=== PATIENT | female | born 1990 | race Caucasian/White ===

== ENCOUNTER 2019-02-18 12:29 | Outpatient (CLI) | payer MEDICAID ==
[~2019-02-18] VITALS: Ht 157.5 cm; Wt 78.2 kg
[2019-02-18 12:33] VITALS: Ht 157.5 cm; Wt 78.2 kg
[2019-02-18 12:34] VITALS: BP 112/78; PULSE 96; RESP 17
--- NOTE | 2019-02-18 14:27 | TRIAGE ---
OB Triage Datetime Report Generated by CPN: 02/18/2019 14:27 Datetime: 02/18/2019 12:54 Labor Evaluation Pattern: Normal: <= 5 Contractions in 10 Minutes Resting Tone [place]: Relaxed Contraction Comments: no uc Heart Rate FHR Baseline Rate: 135 Variability: Moderate 6-25 bpm Accelerations: 15X15 Decelerations: None Category: Category I Comments: reactive nst Datetime: 02/18/2019 12:38 Assessment Type: Triage Maternal Assessment Level of Consciousness: Fully Conscious DTR's/Clonus: DTRs 2+; No Clonus Headache: Denies Blurred Vision: No Respiratory Effort: Unlabored; Regular Rhythm; Equal Expansion Breath Sounds, Left: Clear and Equal Breath Sounds, Right: Clear and Equal Nausea/Vomiting: Denies RUQ Epigastric Pain: Denies Lower Extremities Edema: None Degree: None Upper Extremities Edema: None Degree: None Facial Edema: None Fall Risk Assessment History of Falling: (0) No Secondary Diagnosis: (0) No Ambulatory Aid: (0) Bedrest/Nurse Assist IV Therapy: (0) No Gait: (0) Normal/Bedrest/Immobile Mental Status: (0) Oriented to Own Ability Fall Score: 0 Fall Risk Score Definition: No Risk: No action required Datetime: 02/18/2019 12:36 Time of Arrival: 02/18/2019 12:30 EGA: 36.5 Arrived By: Ambulatory Arrived From: Home Chief Complaint: pt. came to ob triage with referral paper for nst and jorge due to a1dm Movement: Present Contractions: Denies/Absent Rupture of Membranes: Denies Vaginal Bleeding: None Vaginal Discharge: Denies Recent Sexual Intercouse: Denies Abdominal Trauma: Not Applicable Patient Complaints: None Additional Patient Complaints: fbs 78 Time Provider Notified: 02/11/2019 13:17 Provider Notified: Initial Plan: nst, jorge
--- NOTE | 2019-02-18 19:36 | PN ---
Triage Information Date/Time Reason for visit: Antepartum testing for gestational diabetes Weeks of Gestation 36 weeks and 5 days /Para Diabetes: gestational Diabetes management: diet controlled Hypertention: none Objective Vital Signs Date Temp Pulse Resp B/P (MAP) Pulse Ox O2 O2 Flow FiO2 Time Delivery Rate 02/18/19 98.1 96 17 112/78 12:34 (89) Heart Rate: 130's Contractions: None Disposition: Discharge Assessment/Plan 28 years old with single intrauterine at 36 weeks and 5 days referred for NST and biophysical profile for gestational diabetes A1. She states good movement. She denies nausea, vomiting, shortness of breath, chest pain, headache, visual changes, vaginal bleeding or LOF. -FHR: No sign of metabolic acidosis- Category I -Contractions: None -Ultrasound performed: Normal ANDREE, BPP 8 out of 8 -Symptoms and sign of labor, preeclampsia, kick count discussed with patient, she voiced understanding. All of her questions answered. -Patient was discharged home in stable condition with the appropriate discharge instructions provided. I would like patient to have close follow-up with her primary physician or outpatient clinic in 1-2 days or return to triage for worsening symptoms or any other urgent concerns. KATHARINA DE LA GARZA Feb 18, 2019 19:36
== END 2019-02-18 14:15 | disposition home or self-care (01) ==
LOC: OBT 12:29 → L-D 12:29 → OBT 14:15
PROVIDERS: ATTEND Obstetrics & Gynecology
DX: O24.419 Gestational diabetes mellitus in pregnancy, unspecified control (principal); Z3A.36 36 weeks gestation of pregnancy
CPT/HCPCS: 76815; Z7500; G0463

== ENCOUNTER 2019-03-06 12:19 | Outpatient (CLI) | payer MEDICAID ==
[~2019-03-06] VITALS: Ht 157.5 cm; Wt 81.7 kg
[2019-03-06 12:31] VITALS: BP 121/85; PULSE 93; RESP 18; Ht 157.5 cm; Wt 81.7 kg
[2019-03-06] MEDS ORDERED: PREN-99 PO (12:35)
[2019-03-06] MEDS ORDERED: FER325 PO (12:36)
--- NOTE | 2019-03-06 14:03 | TRIAGE ---
OB Triage Datetime Report Generated by CPN: 03/06/2019 14:03 Datetime: 03/06/2019 12:40 Stage of : OB Triage Assessment Type: Triage Maternal Assessment Level of Consciousness: Fully Conscious DTR's/Clonus: DTRs 2+; No Clonus Headache: Denies Blurred Vision: No Respiratory Effort: Unlabored; Regular Rhythm; Equal Expansion Breath Sounds, Left: Clear and Equal Breath Sounds, Right: Clear and Equal Nausea/Vomiting: Denies RUQ Epigastric Pain: Denies Lower Extremities Edema: Bilateral Lower Extremities Degree: 1+ Upper Extremities Edema: None Degree: None Facial Edema: None Temperature Route: Oral Fall Risk Assessment History of Falling: (0) No Secondary Diagnosis: (0) No Ambulatory Aid: (0) Bedrest/Nurse Assist IV Therapy: (0) No Gait: (0) Normal/Bedrest/Immobile Mental Status: (0) Oriented to Own Ability Fall Score: 0 Fall Risk Score Definition: No Risk: No action required Labor Evaluation Frequency: x1 Monitor Mode: External Duration (sec)2399: 50 Quality: Mild Resting Tone [place]: Relaxed Heart Rate FHR Baseline Rate: 130 Monitor Mode: External US FHR Baseline Changes: No Baseline Change Variability: Moderate 6-25 bpm Accelerations: 15X15 Decelerations: None Category: Category I Pain Assessment Pain Scale: 0 Pain Presence: None/Denies Pain Type: N/A Datetime: 03/06/2019 12:22 Vaginal Exam Dilatation (cms): 1.5 Station: -3 Exam By: Dr Bibiana Datetime: 02/18/2019 14:00 Time of Arrival: 03/06/2019 12:11 EGA: 39.0 Arrived By: Ambulatory Arrived From: Home Chief Complaint: vaginal discharge Movement: Present Contractions: Denies/Absent Rupture of Membranes: Denies Vaginal Bleeding: None Vaginal Discharge: Present Recent Sexual Intercouse: Denies Abdominal Trauma: Not Applicable Patient Complaints: None Time Provider Notified: 03/06/2019 12:22 Provider Notified: Dr Mccarty Initial Plan: NST, EFM Datetime: 02/18/2019 12:38 Fall Score: 0 Fall Risk Score Definition: No Risk: No action required Datetime: 02/18/2019 12:36 EGA: 36.5
--- NOTE | 2019-03-06 17:36 | PN ---
Triage Information Date/Time 03/06/19/ 1726 Reason for visit: mucosy discharge Weeks of Gestation 39w /Para Diabetes: none, gestational Diabetes management: diet controlled Objective Vital Signs Date Temp Pulse Resp B/P (MAP) Pulse Ox O2 O2 Flow FiO2 Time Delivery Rate 03/06/19 98.7 93 18 121/85 12:31 (97) Heart Rate: 140's Contractions: None Exam 1-2/ long/-3 post FBS 77 Results/Medications Imaging Results BPP 06/11 ANDREE 14.4 Disposition: Discharge Assessment/Plan A IUP 39w NIL Pdischarge home with routine instruction JAYDON BENNETT MD March 06, 2019 17:36
== END 2019-03-06 13:40 | disposition home or self-care (01) ==
LOC: L-D 12:19 → OBT 12:19
PROVIDERS: ATTEND Obstetrics & Gynecology
DX: O24.410 Gestational diabetes mellitus in pregnancy, diet controlled (principal); Z3A.39 39 weeks gestation of pregnancy
CPT/HCPCS: 76818; Z7500; G0463

== ENCOUNTER 2019-03-08 16:14 | Inpatient (IN) | payer MEDICAID ==
[~2019-03-08] VITALS: Ht 160 cm; Wt 81.5 kg
[~2019-03-08 16:14] MED LIST: FER325 PO; PREN-99 PO
[2019-03-08 16:21] VITALS: Ht 160 cm; Wt 81.5 kg
[2019-03-08 16:22] VITALS: BP 126/88; PULSE 93; RESP 18
[2019-03-08] MEDS: LACTATED RINGER'S 1,000 ML IV SCH ×2 (17:49→21:00)
[2019-03-08] MEDS ORDERED: CARBOPROST 250 MCG INJ IM PRN (18:00)
[2019-03-08] MEDS ORDERED: OXYTOCIN 30 UNITS/LR 500 ML IV SCH ×3 (18:00)
[2019-03-08] MEDS ORDERED: OXYTOCIN 30 UNITS/LR 500 ML IV PRN (18:00)
[2019-03-08] MEDS ORDERED: BUTORPHANOL 2 MG INJ IV PRN (18:00)
[2019-03-08] MEDS ORDERED: METHYLERGONOVINE 0.2 MG INJ IM PRN (18:00)
[2019-03-08] MEDS ORDERED: LIDOCAINE 1% (MPF) 30 ML INJ INJ PRN (18:00)
[2019-03-08] MEDS ORDERED: MISOPROSTOL 200 MCG TAB PR PRN (18:00)
[2019-03-08] MEDS ORDERED: IBUPROFEN 600 MG TAB PO PRN (18:00)
[2019-03-08] MEDS: DEXTROSE 5%-LR 1,000 ML IV SCH ×2 (18:11→22:23)
[2019-03-08] MEDS ORDERED: MISOPROSTOL 50 MCG CAPSULE PO SCH (18:30)
--- NOTE | 2019-03-08 18:53 | HP ---
Date/Time of Note Date/Time of Note DATE: 03/08/19 TIME: 18:50 OB - History Hx of Present Free Text/Dictation 28 years old 2 para 1-0-0-1 with single intrauterine at 39 weeks and 2 days with diabetes complaining of uterine contractions. She states good movement. She denies nausea, vomiting, shortness of breath, chest pain, headache, visual changes, vaginal bleeding or LOF. Chief Complaint: Uterine contractions Estimated Due Date: March 13, 2019 : 2 Para: 1 Spontaneous : 0 Therapeutic : 0 Care: Good Care Ultrasounds: Normal mid trimester US Obstetrical Complications: Gestational Diabetes Medical Complications: Musculoskeletal Past Family/Social History * Past Medical, Surgical, Family and Obstetric Histories reviewed from chart. Blood Type: O+ Rubella: immune RPR/VDRL: Negative GBS Status: Negative HBsAG: Negative OB Admission Exam Vital Signs Vital Signs Vital Signs Date Temp Pulse Resp B/P (MAP) Pulse Ox O2 O2 Flow FiO2 Time Delivery Rate 03/08/19 97.8 93 18 126/88 Room Air 16:22 (101) Physical Exam HEENT: WNL Heart: Rhythm Normal Lungs: Clear Abdomen: WNL Extremities: Normal Cervical Dilatation: 2cm Effacement: 50% Station: -3 Membranes: Intact Heart Rate: 140's Accelerations: Accelerations Present Decelerations: No Decelerations Varibility: Moderate Contractions on Admission: 6-10 Minutes Apart Intensity: Moderate Last 72 hourBlood Glucose Bedside Glucose - 72 Hours Test 03/08/19 17:56 Bedside Glucose 89 mg/dL (70-220) Last 72 hours Lab Results CBC & BMP 03/08/19 17:30 OB Assessment/Plan Other plan: 28 years or 1001 with single intrauterine at 39 weeks and 2 days with A1 gestational diabetes - FHR: No sign of metabolic acidosis- Category I - Continuous EFM, toco - CBC, blood type and screen - Check blood glucose every 4 hours and then every 2 hours and active phase - Analgesia options with R/B/A discussed in detail with patient - Epidural per patient request - Please see the orders - O+/Rubella: Immune - GBS: Negative Admission, procedures, expectations, risks and possible complications have been discussed in detail with the patient. Risk of vaginal delivery including but not limited to bleeding, infection, cervical laceration, placental retention, injury to fetus, blood transfusion, blood transfusion related infection, risk of anesthesia, adhesion, cervical laceration, episiotomy/laceration, possible delivery with risk of bleeding, infection, injury to other organs (bowel, bladder, ureter, vessels, nerves), injury to fetus, blood transfusion, blood transfusion related infection, risk of anesthesia, scar and hernia formation, needs for future , removal of uterus or any other indicated surgery discussed with the patient. She expressed understanding and repeats the risks. All of her questions were answered. She signed the informed consent. PHYSICIAN'S VERIFICATION OF INFORMED CONSENT The patient was counseled regarding the procedure, its indications, risks, potential complications and alternatives and any questions were answered. Consent was obtained. PLANNED PROCEDURE/TREATMENT: Vaginal delivery, episiotomy, repair of laceration possible delivery KATHARINA DE LA GARZA March 08, 2019 18:53
[2019-03-08] MEDS ORDERED: FENTAnyl 2MCG/ML-ROPIV 0.2% 100 ML ONE (21:00)
--- NOTE | 2019-03-08 21:12 | PREAC ---
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 not on B-Jose Reported Medications Ferrous Sulfate* (Ferrous Sulfate*) 325 Mg Tabec, 325 MG PO DAILY, TAB 03/06/19 Vit #76/Iron,Carb/FA (Pnv 29-1 Tablet) 1 Each Tablet, 1 EACH PO DAILY, TAB 03/06/19 Current Medications Lactated Ringer's 1,000 ml @ 125 mls/hr Q8H IV Last administered on 03/08/19at 21:00; Admin Dose 125 MLS/HR; Start 03/08/19 at 17:42 Butorphanol Tartrate (Stadol) 2 mg Q2H PRN IV .PAIN; Start 03/08/19 at 18:00 Lidocaine (Xylocaine 1% (Mpf)) 30 ml ONCE PRN INJ .EPISIOTOMY; Start 03/08/19 at 18:00 Oxytocin/Lactated Ringer's 500 ml @ 500 mls/hr ONCE POST IV ; Start 03/08/19 at 18:00 Oxytocin/Lactated Ringer's 500 ml @ 125 mls/hr POST IV ; Start 03/08/19 at 18:00 Ibuprofen (Motrin) 600 mg ONCE PRN PO .PAIN 1-5; Start 03/08/19 at 18:00 Oxytocin/Lactated Ringer's 500 ml @ 0 mls/hr ONCE PRN IV .VAGINAL BLEEDING; Start 03/08/19 at 18:00 Methylergonovine Maleate (Methergine) 0.2 mg ONCE PRN IM .VAGINAL BLEEDING; Start 03/08/19 at 18:00 Carboprost Tromethamine (Hemabate) 250 mcg ONCE PRN IM .VAGINAL BLEEDING; Start 03/08/19 at 18:00 Misoprostol (Cytotec) 1,000 mcg ONCE PRN VT .VAGINAL BLEEDING; Start 03/08/19 at 18:00 Oxytocin/Lactated Ringer's 500 ml @ 0 mls/hr FOR AUGMENTATION IV ; Start 03/08/19 at 18:00 Dextrose/Lactated Ringer's 1,000 ml @ 125 mls/hr Q8H IV Last administered on 03/08/19at 18:11; Admin Dose 125 MLS/HR; Start 03/08/19 at 18:00 Misoprostol (Cytotec 50 Mcg Capsule) 50 mcg Q4 PO Last administered on 03/08/19at 18:52; Admin Dose 50 MCG; Start 03/08/19 at 18:30 Meds reviewed: Yes Allergies Coded Allergies: No Known Allergy (Unverified , 02/18/19) Allergies Reviewed: Yes Labs/Studies Labs Reviewed: Reviewed by anesthesiologist Result Diagram: 03/08/19 1730 Laboratory Tests 03/08/19 17:30 Blood Bank Test 03/08/19 17:30 Antibody Screen NEGATIVE Blood Type O POSITIVE Rh Immune Globulin Candidate NO test: Positive Studies: ECG (n/a), CXR (n/a) Pre-procedure Exam Last vitals Vital Signs Date Temp Pulse Resp B/P (MAP) Pulse Ox O2 O2 Flow FiO2 Time Delivery Rate 03/08/19 97.8 93 18 126/88 Room Air 16:22 (101) Airway: Adequate mouth opening, Adequate thyromental dist Mallampati: Mallampati II Teeth: Normal Lung: Normal Heart: Normal ASA Physical Status ASA physical status: 3 Emergency: E Planned Anesthetic Neuraxial: Epidural Planned Pain Management Epidural, Parenteral pain med, Local by surgeon Pre-operative Attestations Prior to commencing anesthesia and surgery, the patient was re-evaluated, there was verification of: *The patient's identity *The results of appropriate recent lab work and preoperative vital signs *The above evaluation not changing prior to induction *Anesthetic plan, risk benefits, alternative and complications discussed with patient/family; questions answered; patient/family understands, accepts and wishes to proceed. Manager Highway used ERIK BARONE MD March 08, 2019 21:12
[2019-03-08] MEDS ORDERED: NALOXONE (0.4 MG/ML) INJ IV PRN (21:30)
[2019-03-08] MEDS ORDERED: FENTAnyl 2MCG/ML-ROPIV 0.2% 100 ML BAG EPI SCH (21:30)
--- NOTE | 2019-03-09 05:23 | OPPN ---
Date/Time of Note Date/Time of Note DATE: 03/09/19 TIME: 13:00 Anesthesia Follow up Anesthesia Follow up Last documented vital signs Vital Signs Date Temp Pulse Resp B/P (MAP) Pulse Ox O2 O2 Flow FiO2 Time Delivery Rate 03/08/19 97.8 93 18 126/88 Room Air 16:22 (101) Respiratory function: WNL Cardiovascular function: WNL ERIK BARONE MD March 09, 2019 05:23
[2019-03-09] MEDS ORDERED: OXYTOCIN 30 UNITS/LR 500 ML IV SCH (06:52)
--- NOTE | 2019-03-09 06:52 | LDN ---
Date/Time of Note Date/Time of Note DATE: 03/09/19 TIME: 06:48 Delivery Summary Weeks of Gestation Term gestation Placenta Delivered: Spontaneously Meconium: none Episiotomy: Yes Laceration repair: Medial episiotomy repaired with 2-0 Vicryl Anesthesia type: Epidural Estimated blood loss: 200 Sponge & Needle done & correct: Yes All needle counts correct: Yes Any foreign bodies felt in the: No Delivery Information Sex Infant Sex: female Apgars 1 Minute: 8 5 Minute: 9 Suctioning Nose & mouth suctioned at anusha: Yes Delee suction performed: No Umbilical Cord Umbilical cord with: 3 Vessels Cord presentations: no nuchal cord Cord Blood was obtained: Yes Mother & Baby Disposition Disposition Baby's weight 7 pounds 11 ounces/ 3490 g Copies To: CC: KATHARINA DE LA GARZA BAHAREH MD March 09, 2019 06:52
[2019-03-09] MEDS ORDERED: OXYTOCIN 30 UNITS/LR 500 ML IV PRN (07:00)
[2019-03-09] MEDS ORDERED: DIBUCAINE 1% 30 GM OINT TOP PRN (07:00)
[2019-03-09] MEDS ORDERED: BENZOCAINE 20% 56 ML SPRAY TOP PRN (07:00)
[2019-03-09] MEDS ORDERED: MAGNESIUM HYDROXIDE 30ML CUP PO PRN (07:00)
[2019-03-09] MEDS ORDERED: METHYLERGONOVINE 0.2 MG INJ IM PRN (07:00)
[2019-03-09] MEDS ORDERED: ACETAMINOPHEN 325 MG TAB PO PRN (07:00)
[2019-03-09] MEDS ORDERED: ONDANSETRON 4 MG INJ IV PRN (07:00)
[2019-03-09] MEDS ORDERED: MISOPROSTOL 200 MCG TAB PR PRN (07:00)
[2019-03-09] MEDS ORDERED: CARBOPROST 250 MCG INJ IM PRN (07:00)
[2019-03-09 09:10] VITALS: BP 121/71; PULSE 92; RESP 18
[2019-03-09] MEDS: LACTATED RINGER'S 1,000 ML IV* SCH ×2 (09:30→14:52)
[2019-03-09] MEDS: LANOLIN HPA 1 PKT TOP PRN (10:27)
[2019-03-09] MEDS: WITCH HAZEL/GLYCERIN PAD PR PRN (10:28)
[2019-03-09] MEDS: ACETAMINOPHEN 325 MG TAB PO PRN ×2 (10:38→17:49)
[2019-03-09] MEDS: IBUPROFEN 600 MG TAB PO PRN ×2 (14:31→22:54)
[2019-03-09 15:48] VITALS: BP 119/65; PULSE 82; RESP 18
[2019-03-09 20:00] VITALS: BP 129/75; PULSE 76; RESP 18
[2019-03-09] MEDS: SENNA/DOCUSATE NA (8.6MG/50MG) TAB PO PRN (21:29)
[2019-03-10 00:10] VITALS: BP 124/72; PULSE 72; RESP 18
[2019-03-10 03:27] VITALS: BP 115/72; PULSE 85; RESP 18
[2019-03-10] MEDS: IBUPROFEN 600 MG TAB PO PRN ×2 (05:18→21:58)
[2019-03-10 08:30] VITALS: BP 121/80; PULSE 81; RESP 17
[2019-03-10] MEDS: LANOLIN HPA 1 PKT TOP PRN (09:12)
[2019-03-10] MEDS: ACETAMINOPHEN 325 MG TAB PO PRN ×2 (09:17→17:43)
[2019-03-10] MEDS: SENNA/DOCUSATE NA (8.6MG/50MG) TAB PO PRN ×3 (09:17→21:57)
--- NOTE | 2019-03-10 14:56 | PN ---
Date/Time of Note Date/Time of Note DATE: 03/10/19 TIME: 14:56 OB Subjective Subjective Subjective PPD# 1 Patient is doing well. She denies nausea, vomiting, shortness of breath, chest pain, headache. She has been ambulating without difficulty, tolerating regular diet. Pain is well controlled on current medications OB Objective Objective Objective General: AAO X 3, comfortable, NAD, appropriate mood and affect. ABD: +BS. Soft, non-tender. Uterus 2 cm below umbilicus Flank: No CVA tenderness (B/L) LE: Mild edema. No clubbing, cyanosis, thigh or calf tenderness (B/L). Homans 'sign is negative OB Assessment/Plan Other plan: 28-year-old 2 para 2-0-0-2 s/p normal vaginal delivery at 39 weeks and 2 days. PPD#1 - AF, VSS - Baby is doing well, at bed side. She is bonding well - Contraception methods with R/B/A/FR discussed - Continue care - Discharge home tomorrow - Rx and instruction given - Follow up in 2 and 6 weeks at clinic KATHARINA DE LA GARZA March 10, 2019 14:56
[2019-03-10 16:00] VITALS: BP 131/96; PULSE 80; RESP 17
[2019-03-10 20:00] VITALS: BP 119/71; PULSE 82; RESP 18
[2019-03-10] MEDS: WITCH HAZEL/GLYCERIN PAD PR PRN (21:58)
[2019-03-11 04:03] VITALS: BP 110/68; PULSE 73; RESP 18
[2019-03-11] MEDS: IBUPROFEN 600 MG TAB PO PRN (08:07)
[2019-03-11] MEDS: SENNA/DOCUSATE NA (8.6MG/50MG) TAB PO PRN (08:07)
[2019-03-11 08:30] VITALS: BP 124/88; PULSE 76; RESP 19
--- NOTE | 2019-03-11 13:15 | DS ---
Date/Time of Note Date/Time of Note DATE: 03/11/19 TIME: 13:11 Obstetrical Discharge Record Final Diagnosis Final Diagnosis: Term delivered Other Final Diagnosis PPD# 2 28-year-old 2 para 2-0-0-2 s/p normal vaginal delivery at 39 weeks and 2 days.Patient is doing well. She denies nausea, vomiting, shortness of breath, chest pain, headache. She has been ambulating without difficulty, tolerating reg ular diet. Pain is well controlled on current medications - AF, VSS - Baby is doing well, at bed side. She is bonding well - Contraception methods with R/B/A/FR discussed - Continue care - Discharge home - Rx and instruction given - Follow up in 2 and 6 weeks at clinic Condition on Discharge Physical Assessment Last Vitals: Vital Signs Date Temp Pulse Resp B/P (MAP) Pulse Ox O2 O2 Flow FiO2 Time Delivery Rate 03/11/19 98.0 76 19 124/88 Room Air 08:30 (100) Voiding: Yes Bowel Movement: Yes Breast: Soft, non-tender Fundus: Firm Calf Tenderness: No Patient Condition: Stable KATHARINA DE LA GARZA March 11, 2019 13:15
--- NOTE | 2019-03-12 16:17 | DELSUM ---
Delivery Summary A-C Datetime Report Generated by CPN: 03/12/2019 16:17 DELIVERY PERSONNEL Laser Printing Operator: Fistell, Gildardo MATERNAL INFORMATION Delivery Anesthesia: Epidural Medications in Delivery: PITOCIN 30 UNITS IN 500 ML L/R INJ IV BOLUS Delivery QBL (ml): 200 Placenta Cultured: No Maternal Complications: None Other Maternal Complications: IN LABOR LABOR SUMMARY EDC: 03/13/2019 00:00 No. Babies in Womb: 1 Attempted: No Labor Anesthesia: Epidural LABOR INFORMATION Reason for Induction: Not Applicable Onset of Labor: 03/08/2019 19:00 Complete Dilatation: 03/09/2019 03:15 Cervical Ripening Agents: Cytotec @ 50 Oxytocin: Augmentation Group B Beta Strep: Negative Antibiotics # of Doses: 0 Steroids Given: None Reason Steroids Not Administered: Not Applicable MEMBRANES Membranes Rupture Method: Spontaneous Rupture of Membranes: 03/09/2019 02:01 Length of Rupture (hr): 4.33 Amniotic Fluid Color: Clear Amniotic Fluid Amount: Moderate Amniotic Fluid Odor: None STAGES OF LABOR Stage 1 hr: 8 Stage 1 min: 15 Stage 2 hr: 3 Stage 2 min: 6 Stage 3 hr: 0 Stage 3 min: 4 Total Time in Labor hr: 11 Total Time in Labor min: 25 VAGINAL DELIVERY Episiotomy: Median Laceration Extension: N/A Laceration Type: None (Annotations: Data stored by N on behalf of user) Laceration Repair: Yes Initial Vag Sponge Count: 10 Final Vag Sponge Count: 10 Initial Vag Sharps Count: 1 Final Vag Sharps Count: 2 Sponge Count Correct: Yes Sharps Count Correct: Yes BABY A INFORMATION Delivery Date/Time: 03/09/2019 06:21 Method of Delivery: Vaginal Born in Route : No : N/A Forceps: N/A Vacuum Extraction: N/A Shoulder Dystocia : No SHOULDER DYSTOCIA BABY A Delivery Date/Time: 03/09/2019 06:21 PRESENTATION/POSITION BABY A Presentation: Cephalic Cephalic Presentation: Vertex Vertex Position: Right Occipital Anterior Breech Presentation: N/A PLACENTA INFORMATION BABY A Placenta Delivery Time : 03/09/2019 06:25 Placenta Method of Delivery: Spontaneous Placenta Status: Delivered SCORES BABY A Heart Rate 1 min: >100 bpm Resp Effort 1 min: Good Cry Reflex Irritability 1 min: Cough/Sneeze/Pulls Away Muscle Tone 1 min: Active Motion Color 1 min: Blue/Pale Resuscitation Effort 1 min: Tactile Stimulation SCORE 1 MIN: 8 Heart Rate 5 min: >100 bpm Resp Effort 5 min: Good Cry Reflex Irritability 5 min: Cough/Sneeze/Pulls Away Muscle Tone 5 min: Active Motion Color 5 min: Body [place], Extremit Blue Resuscitation Effort 5 min: N/A SCORE 5 MIN: 9 INFANT INFORMATION BABY A Gestational Age at Delivery: 39.3 Gestational Status: Full Term- 39- 40.6 Weeks Outcome : Liveborn Condition : Stable Sex: Female IDENTIFICATION/MEDS BABY A ID Band Number: [id number] ID Band Location: Right Leg; Left Arm Sensor Applied: Yes Sensor Number: [id number] Sensor Location : Cord Clamp Vitamin K Given : Not Given Erythromycin Given: Not Given WEIGHT/LENGTH BABY A Birthweight (gm): 3490 Infant Weight (lb): 7 Weight (oz): 11 Infant Length (in): 20.00 Length (cm): 50.80 CORD INFORMATION BABY A No. Cord Vessels: 3 Nuchal Cord : N/A Cord Blood Taken: Yes Suction: Mouth; Nose ASSESSMENT BABY A Infant Complications: None Physical Findings at Delivery: Within Normal Limits Infant Respirations: Appears Normal Health Services Manager/ALS Called : No Care By: Myron HERNANDEZ RT Transferred To: Remains with Mother
== END 2019-03-11 15:20 | disposition home or self-care (01) | DRG 807 ==
LOC: OBT 16:14 → L-D 16:15 → OBT 17:08 → L-D 17:08 → PP1 03-09 09:11
PROVIDERS: ADMIT Obstetrics & Gynecology; ATTEND Obstetrics & Gynecology
PROC: 10E0XZZ Delivery of Products of Conception, External Approach (ICD-10-PCS; principal; 2019-03-09)
PROC: 0W8NXZZ Division of Female Perineum, External Approach (ICD-10-PCS; 2019-03-09)
DX: O24.420 Gestational diabetes mellitus in childbirth, diet controlled (principal); Z37.0 Single live birth; Z3A.39 39 weeks gestation of pregnancy
CPT/HCPCS: 62322; 76815; 76818; 82962; 85025; 85610; 85730; 86592; 86850; 86900; 86901; 87340; 99464; G0463; J2590; J3010; J7120; J7121

== ENCOUNTER 2019-04-16 22:27 | Emergency (ER) | payer MEDICAID ==
[~2019-04-16] VITALS: Ht 157.5 cm; Wt 69.4 kg
[2019-04-16 22:30] VITALS: Ht 157.5 cm; Wt 69.4 kg
--- NOTE | 2019-04-16 22:40 | ERD ---
ER Documentation Chief Complaint Chief Complaint abd pain HPI The patient is a 28-year-old female, presenting to the ER because of in termittent epigastric abdominal pain, usually happen in the evening, worse tonight, denies fever, chills, neck pain, chest pain, dyspnea, vomiting, dysuria, diarrhea. She does not smoke nor drink Past medical/surgical history: None ROS All systems reviewed and are negative except as per history of present illness. Medications Home Meds Active Scripts Ibuprofen* (Motrin*) 600 Mg Tab, 600 MG PO Q6H PRN for PAIN AND OR ELEVATED TEMP, #20 TAB Prov:TOBI LUGO MD 04/17/19 Famotidine* (Pepcid*) 20 Mg Tablet, 20 MG PO BID for 7 Days, TAB Prov:TOBI LUGO MD 04/17/19 Reported Medications Ferrous Sulfate* (Ferrous Sulfate*) 325 Mg Tabec, 325 MG PO DAILY, TAB 03/06/19 Vit #76/Iron,Carb/FA (Pnv 29-1 Tablet) 1 Each Tablet, 1 EACH PO DAILY, TAB 03/06/19 Allergies Allergies: Coded Allergies: No Known Allergy (Unverified , 02/18/19) Physical Exam Vitals Vital Signs Date Temp Pulse Resp B/P (MAP) Pulse Ox O2 O2 Flow FiO2 Time Delivery Rate 04/17/19 82 18 101/72 00:09 (82) 04/16/19 98.2 68 18 100/58 99 22:30 (72) Physical Exam Const: No acute distress. Head: Atraumatic. Eyes: Normal Conjunctiva. ENT: Normal External Ears, Nose and Mouth. Neck: Full range of motion. No meningismus. Resp: Clear to auscultation bilaterally. Cardio: Regular rate and rhythm. Abd: Soft, non distended, normal bowel sounds, mild ruq/epigastric tenderness, no right lower quadrant/rigidity/rebound/CVA tenderness. Skin: No petechiae or rashes. Back: No midline or flank tenderness. Ext: No cyanosis, or edema. Neur: Awake and alert. No focal deficit Psych: Normal Mood and Affect. Result Diagram: 04/16/195 04/16/192307 Results 24 hrs Laboratory Tests Test 04/16/19 23:02 04/16/19 23:08 Bedside Urine pH (LAB) 6.0 Bedside Urine Protein (LAB) Negative Bedside Urine Glucose (UA) Negative Bedside Urine Ketones (LAB) Negative Bedside Urine Blood Negative Bedside Urine Nitrite (LAB) Negative Bedside Urine Leukocyte Esterase (L Trace POC Beta HCG, Qualitative NEGATIVE White Blood Count 12.3 10^3/ul Red Blood Count 4.40 10^6/ul Hemoglobin 12.7 g/dl Hematocrit 37.7 % Mean Corpuscular Volume 85.7 fl Mean Corpuscular Hemoglobin 28.9 pg Mean Corpuscular Hemoglobin Concent 33.7 g/dl Red Cell Distribution Width 11.8 % Platelet Count 239 10^3/UL Mean Platelet Volume 10.2 fl Immature Granulocytes % 0.200 % Neutrophils % 72.6 % Lymphocytes % 20.7 % Monocytes % 4.7 % Eosinophils % 1.6 % Basophils % 0.2 % Nucleated Red Blood Cells % 0.0 /100WBC Immature Granulocytes # 0.030 10^3/ul Neutrophils # 8.9 10^3/ul Lymphocytes # 2.5 10^3/ul Monocytes # 0.6 10^3/ul Eosinophils # 0.2 10^3/ul Basophils # 0.0 10^3/ul Nucleated Red Blood Cells # 0.0 10^3/ul Sodium Level 142 mmol/L Potassium Level 3.5 mmol/L Chloride Level 107 mmol/L Carbon Dioxide Level 28 mmol/L Anion Gap 7 Blood Urea Nitrogen 15 mg/dl Creatinine 0.58 mg/dl Est Glomerular Filtrat Rate mL/min > 60 mL/min Glucose Level 102 mg/dl Calcium Level 9.1 mg/dl Total Bilirubin 0.3 mg/dl Direct Bilirubin 0.00 mg/dl Indirect Bilirubin 0.3 mg/dl Aspartate Amino Transf (AST/SGOT) 92 IU/L Alanine Aminotransferase (ALT/SGPT) 67 IU/L Alkaline Phosphatase 149 IU/L Total Protein 7.0 g/dl Albumin 4.2 g/dl Globulin 2.80 g/dl Albumin/Globulin Ratio 1.50 Lipase 68 U/L Current Medications Medications Dose Sig/Gucci Start Time Status Last (Trade) Ordered Route PRN Stop Time Admin Dose Reason Admin Sodium 1,000 ml @ Q1H ONCE 04/16/19 DC 04/16/19 Chloride 1,000 mls/hr IV 23:00 23:13 04/16/19 23:59 Famotidine 20 mg ONCE ONCE 04/16/19 DC 04/16/19 (Pepcid Iv) IV 23:00 23:12 04/16/19 23:01 Procedures/MDM [place] [id number] Radiology Main Line: [phone] DIAGNOSTIC IMAGING REPORT Patient: SHAUN GONG : 1990 Age: 28 Sex: F MR #: [id number] DOS: 04/16/19 2257 Ordering MD: TOBI LUGO MD Location: E/R Room/Bed: PROCEDURE: US Abdomen (right upper quadrant). CLINICAL INDICATION: Pain. TECHNIQUE: Multiple real-time longitudinal and transverse images of the right upper quadrant of the abdomen were acquired utilizing a curved array transducer. Images were reviewed on a high-resolution PACS workstation. COMPARISON: None FINDINGS: The liver is normal in size and echogencity. There is no focal intrahepatic mass.. The gallbladder is contracted. There is shadowing compatible with gallstones within the gallbladder. There is no pericholecystic fluid. No intra or extrahepatic biliary dilatation is seen. The common bile duct measures 2.1 mm in maximal dimension. The visualized portions of the pancreas are unremarkable with obscuration of the tail of the pancreas. No free fluid is identified. Visualized abdominal aorta and IVC are unremarkable. The right kidney measures 11.4 cm in length. Renal cortical echogenicity is within normal limits.. There is no perinephric fluid collection. No hydronephrosis, mass, or calculus is seen. IMPRESSION: 1. Contracted gallbladder containing gallstones. No ultrasound evidence for acute cholecystitis. 2. Evidence for biliary obstruction. 3. Otherwise negative. RPTAT: [facility] .Tobi Graff MD, Date Time Electronically viewed and signed by .Tobi Graff MD, on 04/16/2019 23:57 .K/ CC: TOBI LUGO MD [id number] MEDICAL MAKING DECISION: The patient is a 28-year-old female, presenting with ac stefano biliary colic, was treated with 1 L normal saline, Pepcid 20 mg IV for epigastric pain with good response, is stable for outpatient follow-up The differential diagnoses considered include but are not limited to cholelithiasis, cholecystitis, choledocholithiasis, cholangitis, pancreatitis, hepatitis, gastritis, peptic ulcer disease, gastric ulcer, appendicitis, cystitis, diverticulitis, partial small bowel obstruction. Departure Diagnosis: Primary Impression: Biliary colic Condition: Good Comments She was discharged with Motrin and Pepcid I discussed the findings with the patient. I advised the patient to follow-up with the primary physician in about 2-3 days for reevaluation and referral to general surgery or Dr. Orr for elective cholecystectomy, sooner if needed and return if any concern. Disclaimer: Inadvertent spelling and grammatical errors are likely due to EHR/dictation software use and do not reflect on the overall quality of patient care. Also, please note that the electronic time recorded on this note does not necessarily reflect the actual time of the patient encounter. TOBI LUGO MD Apr 16, 2019 22:40
[2019-04-16] MEDS ORDERED: SOD CHLORIDE 0.9% 1,000 ML IV ONE (23:00)
[2019-04-16] MEDS ORDERED: FAMOTIDINE 20 MG INJ IV ONE (23:00)
[2019-04-17] MEDS ORDERED: FAMO-96 PO (00:03)
[2019-04-17] MEDS ORDERED: IBUP-1542 PO (00:03)
[2019-04-17 00:09] VITALS: BP 101/72; PULSE 82; RESP 18
== END 2019-04-17 00:15 | disposition home or self-care (01) ==
LOC: E/R 22:27
DX: K80.20 Calculus of gallbladder without cholecystitis without obstruction (principal)
CPT/HCPCS: 36415; 76705; 80053; 81003; 81025; 83690; 85025; 96374; J7030; Z7502; Z7610